=== PATIENT | male | born 1940 | race Caucasian/White ===

== ENCOUNTER 2016-06-08 09:58 | Inpatient (IN) | payer MEDICARE, BC ==
--- NOTE | 2016-06-08 10:27 | ED ---
General Adult HPI - General Chief complaint: Altered Mental Status Stated complaint: Alter mental/weakness Time Seen by Provider: 06/08/16 10:09 Source: EMS, RN notes reviewed, old records reviewed Mode of arrival: EMS Limitations: altered mental status - History of Present Illness Initial comments: This is a 75-year-old male ER for evaluation. This patient presents to ER for evaluation of altered mental status. Patient is brought in by EMS with family, patient is non-historian secondary to dementia, patient is altered mental status which is new decrease in level of responsiveness no known fevers, per family similar symptoms with prior urinary tract infections. History is otherwise obtained from EMS and the chart - Related Data Home Medications Medication Instructions Recorded Confirmed Allopurinol [Zyloprim] 300 mg PO HS 01/01/16 06/08/16 Aspirin EC [Ecotrin Low Dose] 81 mg PO DAILY 01/01/16 06/08/16 Donepezil [Aricept] 10 mg PO DAILY 01/01/16 06/08/16 Memantine [Namenda] 10 mg PO BID 01/01/16 06/08/16 Warfarin [Coumadin] 5 mg PO HS 01/01/16 06/08/16 Sertraline [Zoloft] 100 mg PO DAILY 02/26/16 06/08/16 Levothyroxine Sodium [Synthroid] 100 mcg PO DAILY 06/08/16 06/08/16 Tamsulosin HCl [Flomax] 0.4 mg PO DAILY 06/08/16 06/08/16 Allergies Allergy/AdvReac Type Severity Reaction Status Date / Time morphine Allergy Hallucinati Verified 06/08/16 11:26 ons Review of Systems ROS Statement: Those systems with pertinent positive or pertinent negative responses have been documented in the HPI. ROS Other: All systems not noted in ROS Statement are negative. Past Medical History Past Medical History: Cancer, CVA/TIA, Hyperlipidemia, Hypertension, Memory Impairment, Mitral Valve Prolapse (MVP) Additional Past Medical History / Comment(s): BLADDER CA, ALZHEIMERS History of Any Multi-Drug Resistant Organisms: None Reported Past Surgical History: No Surgical Hx Reported Additional Past Surgical History / Comment(s): BLADDER SURGERY, MITRAL VALVE REPLACED Past Anesthesia/Blood Transfusion Reactions: No Reported Reaction Past Psychological History: Depression Smoking Status: Former smoker Past Alcohol Use History: Rare Additional Past Alcohol Use History / Comment(s): STARTED SMOKING AT AGE 13 QUIT 1988 SMOKED 1PPD- 1 1/2PPD PPD Past Drug Use History: None Reported - Past Family History Mother Family Medical History: No Reported History General Exam - General Exam Comments Initial Comments: Pale Limitations: altered mental status General appearance: lethargic, in distress, cachectic Head exam: Present: atraumatic, normocephalic, normal inspection Eye exam: Present: normal appearance, PERRL, EOMI. Absent: scleral icterus, conjunctival injection, periorbital swelling ENT exam: Present: mucous membranes dry, mucous membranes moist Neck exam: Present: normal inspection. Absent: tenderness, meningismus, lymphadenopathy Respiratory exam: Present: normal lung sounds bilaterally. Absent: respiratory distress, wheezes, rales, rhonchi, stridor Cardiovascular Exam: Present: normal rhythm, tachycardia, normal heart sounds. Absent: systolic murmur, diastolic murmur, rubs, gallop, clicks GI/Abdominal exam: Present: soft, normal bowel sounds. Absent: distended, tenderness, guarding, rebound, rigid Extremities exam: Present: normal inspection, full ROM, normal capillary refill. Absent: tenderness, pedal edema, joint swelling, calf tenderness Back exam: Present: normal inspection Neurological exam: Present: alert, oriented X3, CN II-XII intact Psychiatric exam: Present: normal affect, normal mood Skin exam: Present: warm, dry, intact, normal color. Absent: rash Course Vital Signs 06/08/16 06/08/16 06/08/16 10:06 11:42 11:59 Temperature 96.7 F L Pulse Rate 104 H 110 H 100 Respiratory 22 20 20 Rate Blood Pressure 111/59 106/57 O2 Sat by Pulse 100 98 100 Oximetry - Reevaluation(s) Reevaluation #1: 06/08/16 11:06 Patient still weak lethargic mildly responsive EKG Findings - EKG Comments: EKG Findings:: EKG shows junctional rhythm rate of 104, QRS 82, QTc 457 Medical Decision Making - Medical Decision Making Signs and male ER for altered mental status and weakness. Patient found to be profoundly anemic with leukocytosis. Patient very pale on exam mildly tachycardic and severely dehydrated. Patient will be admitted for IV hydration and blood transfusion, monitoring of hemoglobin monitoring of cardiorespiratory status and hemodynamic status - Lab Data Result diagrams: 06/08/16 10:37 06/08/16 10:37 Lab Results 06/08/16 06/08/16 06/08/16 Range/Units 10:37 10:37 10:37 WBC 28.7 H* (3.8-10.6) k/uL RBC 1.68 L (4.30-5.90) m/uL Hgb 3.7 L* (13.0-17.5) gm/dL Hct 15.0 L* (39.0-53.0) % MCV 89.2 (80.0-100.0) fL MCH 22.2 L (25.0-35.0) pg MCHC 24.9 L (31.0-37.0) g/dL RDW 15.4 (11.5-15.5) % Plt Count 573 H (150-450) k/uL Neutrophils % (Manual) 96.0 % Lymphocytes % (Manual) 3.0 % Monocytes % (Manual) 1.0 % Neutrophils # (Manual) 27.6 H (1.3-7.7) k/uL Lymphocytes # (Manual) 0.9 L (1.0-4.8) k/uL Monocytes # (Manual) 0.3 (0-1.0) k/uL Nucleated RBCs 0 (0-0) /100 WBC Polychromasia Present Hypochromasia Marked Poikilocytosis Slight Anisocytosis (manual) Present Ovalocytes Present PT (9.0-12.0) sec INR (<1.1) APTT (22.0-30.0) sec Sodium 148 H (137-145) mmol/L Potassium 5.1 (3.5-5.1) mmol/L Chloride 113 H (98-107) mmol/L Carbon Dioxide 7 L* (22-30) mmol/L Anion Gap 28 mmol/L BUN 61 H (9-20) mg/dL Creatinine 2.00 H (0.66-1.25) mg/dL Est GFR (MDRD) Af Amer 39 (>60 ml/min/1.73 sqM) Est GFR (MDRD) Non-Af 33 (>60 ml/min/1.73 sqM) Glucose 153 H (74-99) mg/dL Calcium 8.8 (8.4-10.2) mg/dL Phosphorus 7.2 H (2.5-4.5) mg/dL Magnesium 2.6 H (1.6-2.3) mg/dL Total Bilirubin 0.3 (0.2-1.3) mg/dL AST 98 H (17-59) U/L ALT 21 (21-72) U/L Alkaline Phosphatase 98 (38-126) U/L Total Creatine Kinase 2574 H (55-170) U/L CK-MB (CK-2) 30.4 H* (0.0-2.4) ng/mL CK-MB (CK-2) Rel Index Troponin I 0.124 H* (0.000-0.034) ng/mL NT-Pro-B Natriuret Pep pg/mL Total Protein 6.1 L (6.3-8.2) g/dL Albumin 3.0 L (3.5-5.0) g/dL TSH 3.480 (0.465-4.680) mIU/L 06/08/16 06/08/16 Range/Units 10:37 10:37 WBC (3.8-10.6) k/uL RBC (4.30-5.90) m/uL Hgb (13.0-17.5) gm/dL Hct (39.0-53.0) % MCV (80.0-100.0) fL MCH (25.0-35.0) pg MCHC (31.0-37.0) g/dL RDW (11.5-15.5) % Plt Count (150-450) k/uL Neutrophils % (Manual) % Lymphocytes % (Manual) % Monocytes % (Manual) % Neutrophils # (Manual) (1.3-7.7) k/uL Lymphocytes # (Manual) (1.0-4.8) k/uL Monocytes # (Manual) (0-1.0) k/uL Nucleated RBCs (0-0) /100 WBC Polychromasia Hypochromasia Poikilocytosis Anisocytosis (manual) Ovalocytes PT >130.0 H (9.0-12.0) sec INR >10.0 H* (<1.1) APTT 62.8 H (22.0-30.0) sec Sodium (137-145) mmol/L Potassium (3.5-5.1) mmol/L Chloride (98-107) mmol/L Carbon Dioxide (22-30) mmol/L Anion Gap mmol/L BUN (9-20) mg/dL Creatinine (0.66-1.25) mg/dL Est GFR (MDRD) Af Amer (>60 ml/min/1.73 sqM) Est GFR (MDRD) Non-Af (>60 ml/min/1.73 sqM) Glucose (74-99) mg/dL Calcium (8.4-10.2) mg/dL Phosphorus (2.5-4.5) mg/dL Magnesium (1.6-2.3) mg/dL Total Bilirubin (0.2-1.3) mg/dL AST (17-59) U/L ALT (21-72) U/L Alkaline Phosphatase (38-126) U/L Total Creatine Kinase (55-170) U/L CK-MB (CK-2) (0.0-2.4) ng/mL CK-MB (CK-2) Rel Index Troponin I (0.000-0.034) ng/mL NT-Pro-B Natriuret Pep 9450 pg/mL Total Protein (6.3-8.2) g/dL Albumin (3.5-5.0) g/dL TSH (0.465-4.680) mIU/L - Radiology Data Radiology results: report reviewed (CT brain negative for acute disease, chest x -ray negative for acute disease), image reviewed Critical Care Time Critical Care Time: Yes Total Critical Care Time: 31 Disposition Clinical Impression: Altered mental status, Anemia, Leukocytosis, Coumadin toxicity Disposition: ADMITTED IP TO THIS [facility] Condition: Serious
[2016-06-08] MEDS ORDERED: SODIUM CHLORIDE 0.9% 1,000 ML IV STA (10:33)
[2016-06-08] MEDS ORDERED: SODIUM CHLORIDE 0.9% 500 ML IV STA (10:33)
[2016-06-08 10:54] LABS: CH 23.8; CHCM 26.8; HDW 3.77; Hypochromasia Marked; MCH 22.2 pg (25.0-35.0); MCV 89.2 fL (80.0-100.0); Poikilocytosis Slight; RBC 1.68 m/uL (4.30-5.90); RDW 15.4 % (11.5-15.5); WBC (Perox) 28.51
[2016-06-08 11:03] LABS: MCHC 24.9 g/dL (31.0-37.0)
[2016-06-08 11:04] LABS: WBC 28.7 k/uL (3.8-10.6)
--- NOTE | 2016-06-08 11:04 | CT ---
EXAMINATION TYPE: CT brain wo con DATE OF EXAM: 06/08/2016 10:58 AM COMPARISON: January 15, 2016 HISTORY: Patient poor historian. Patient shows signs of weakness. Patient has a history of dementia . CT DLP: 864.[address] of the brain was performed. The ventricles, basal cisterns and sulci overlying the cerebral convexities demonstrate mild enlargem ent. There is no evidence for intracranial hemorrhage or sulcal effacement. There is decreased attenuation about the periventricular white matter and deep white matter of both c erebral hemispheres, compatible with chronic small vessel ischemia. Differential diagnosis does inclu de demyelination. No mass effects are seen.No midline shift. Osseous calvarium is intact. If symptoms persist consider MRI. IMPRESSION: 1. Age related atrophic and chronic small vessel ischemic change without acute intracranial process s een at this time.
[2016-06-08 11:06] LABS: HGB 3.7 gm/dL (13.0-17.5)
--- NOTE | 2016-06-08 11:06 | XR ---
EXAMINATION TYPE: XR chest 2V DATE OF EXAM: 06/08/2016 10:58 AM COMPARISON: 01/01/2016 HISTORY: Shortness of breath TECHNIQUE: Frontal and lateral views of the chest are obtained. FINDINGS: Scattered senescent parenchymal changes noted. Hyperinflation compatible with COPD. No evidence for infiltrate. No evidence for atelectasis. Heart size is stable. Mediastinal structures are stable and grossly unremarkable. No evidence for hilar prominence. Degenerative changes dorsal spine. IMPRESSION: 1. No evidence for acute pulmonary disease.
[2016-06-08] MEDS ORDERED: SODIUM CHLORIDE 0.9% 1,000 ML IV ONE ×2 (11:07→14:04)
[2016-06-08 11:17] LABS: Calcium 8.8 mg/dL (8.4-10.2); Magnesium 2.6 mg/dL (1.6-2.3); Phosphorous 7.2 mg/dL (2.5-4.5); Potassium 5.1 mmol/L (3.5-5.1); Total Bilirubin 0.3 mg/dL (0.2-1.3); Total Protein 6.1 g/dL (6.3-8.2)
[2016-06-08 11:25] LABS: Prothrombin Time >130.0 sec (9.0-12.0)
[2016-06-08 11:26] LABS: INR >10.0 (<1.1)
[2016-06-08 11:27] LABS: Partial Thromboplastin Time 62.8 sec (22.0-30.0)
[2016-06-08 11:29] LABS: Creatine Kinase MB 30.4 ng/mL (0.0-2.4); Troponin I 0.124 ng/mL (0.000-0.034)
[2016-06-08] MEDS ORDERED: PHYTONADIONE 10 MG in SODIUM CHLORIDE 0.9% 50 ML IVPB STA (11:29)
[2016-06-08 11:33] LABS: Add Differential Manual Differential
[2016-06-08 11:34] LABS: Nucleated Red Blood Cells 0 /100 WBC (0-0); Total Cells Counted 100
[2016-06-08 11:35] LABS: Polychromasia Present
[2016-06-08 11:36] LABS: Ovalocytes Present
[2016-06-08 12:07] LABS: Amorphous Sediment,Urine Rare /hpf; Appearance,Urine Cloudy (Clear); Bilirubin,Urine Negative (Negative); Glucose,Urine (UA) Negative (Negative); Ketones,Urine Trace (Negative); Leukocyte Esterase,Urine Negative (Negative); Mucus,Urine Rare /hpf; Nitrite,Urine Negative (Negative); Particle Count 10417; Protein,Urine 1+ (Negative); RBC,Urine 1 /hpf (0-5); Specific Gravity,Urine 1.014 (1.001-1.035); UA Billing (MACRO vs. MICRO) MICRO; Urobilinogen,Urine <2.0 mg/dL (<2.0); WBC,Urine 2 /hpf (0-5)
[2016-06-08 13:53] LABS: VBG PH 6.96 (7.31-7.41)
[2016-06-08] MEDS: SODIUM BICARB 8.4% 50 ML SYR (1 MEQ/ML) IV STA ×4 (15:46→15:54)
[2016-06-08] MEDS: SODIUM CHLORIDE 0.9% 1,000 ML IV ONE ×2 (15:47→15:53)
[2016-06-08] MEDS ORDERED: HYDROmorphone 1 MG/ML 1 ML SYRINGE IVP PRN (18:09)
[2016-06-08] MEDS ORDERED: SODIUM CHLORIDE 0.9% 1,000 ML IV SCH (18:15)
[2016-06-08 18:38] VITALS: BP 80/44; PULSE 98; RESP 29; TEMP 96.9
--- NOTE | 2016-06-08 18:40 | P.HPIM ---
History of Present Illness Chief complaint: Altered mental status. History of present illness: Patient is a 75-year-old gentleman who does have underlying Alzheimer's dementia. Apparently yesterday he became very lethargic and would not get out of bed. He was not responsive to family members. Has been having multiple falls at home. Generally deteriorating further over the past 48 hours so family brought him to the emergency room. The patient was found to be markedly anemic with a hemoglobin of 3.7. Also very acidotic with a CO2 content down to 7. An elevated plasma lactic acid level of 17.5. Along with stage III renal failure and an elevated CK likely related to rhabdomyolysis. Consultation was obtained with pulmonary medicine and Dr. Mcdaniels discussed with the family in the emergency room. I discussed over the phone with Dr. Mcdaniels. Family subsequently decided on comfort care/hospice care and did not want further aggressive treatment such as endoscopies or transfusion therapy. Past medical history: Patient does have fairly late onset but progressive Alzheimer's disease. Patient has history of mitral valve disorder for which he is on Coumadin. Patient does have underlying history of hypertension. Also hypothyroidism. Patient has also had underlying depression for a long time. BPH. Previous gout attacks. The patient has been [facility] and also by neurology Dr. West and has been on Aricept 10 mg and memantine 10 mg. Medication: Patient does not have ALLERGIES to morphine but did have side effects with hallucinations at one point. Home medications include Coumadin 5 mg daily. Flomax 0.4 mg daily. Zoloft 100 mg daily. Levothyroxine 100 g daily. Aspirin 81 mg daily. Zyloprim 300 mg at at bedtime. Namenda 10 mg twice a day. And Aricept 10 mg daily. Review of systems: Basically as mentioned in history of present illness. Apparently he has had numerous falls at home. No definite history of any head injury or headaches. No nausea or vomiting. Family denied any actual hematemesis or melena. Family history noncontributory Social history: he is a former smoker. Negative for alcohol usage. Patient did live with his locally and does have many family members present in the room at this time. Physical examination: The patient does try to verbalize but mostly mumbles. Vital signs reveal temperature of 96.6 with a pulse of 100 and respirations 20. Blood pressure 125/53 and he is 98% saturated. Head is atraumatic. Extraocular movements intact. Neck does not reveal any adenopathy or thyromegaly. Lungs are clear to auscultation. Heart tones are regular without definitive murmur or rubs appreciated. Abdomen does not reveal any tenderness. No organomegaly or masses detected. Extremities reveal no edema. He is obtunded. But able to move all extremities and no definitive focal neurological weakness noted. Laboratory values: White count elevated at 28.7 with a hemoglobin of 3.7 and a platelet count of 573. INR is 10 with a prothrombin time of 130. Venous pH was 6.96. Sodium was 148 with potassium of 5.1 but his CO2 content of 7. BUN is 61 with a creatinine of 2 giving him a GFR of 33. Plasma lactic acid was there is 17.5. Glucose 153. Phosphorus elevated at 7.2 with a magnesium 2.6 and a calcium of 8.8. AST was 98. CK was 2574. CK-MB elevated at 30.4. Troponin 0.124. TSH was 3.4. Urinalysis was negative for leukocyte esterase and only 2 white cells present. Chest x-ray revealed no evidence of acute pulmonary disease Brain CAT scan showed age-related atrophy without acute intracranial process. EKG showed a accelerated junctional rhythm. No definite ischemic changes noted. Impressions and plans: Overall this 75-year-old gentleman with underlying Alzheimer's dementia presents with active gastrointestinal blood loss with marked anemia down to 3.7. Unable to definitively to pinpoint cause of bleeding such as peptic ulcer or underlying intra-abdominal malignancy. But in light of his severe Alzheimer' s disease family wanted to make patient a no code no CPR and continue now with the hospice care for the patient. Prognosis is very guarded in light of the seriousness of the bleed and the associated metabolic acidosis and rhabdomyolysis and possible myocardial infarction associated to with the severe anemia. Other past history as stated above. Plans are therefore for hospice to be consulted. Comfort measures instituted with analgesics as needed. We will decrease IV down to 20 mL an hour. No laboratory testing or further evaluations for diagnostic or therapeutic purposes at this time as discussed with and daughters at bedside. Past Medical History Past Medical History: Cancer, CVA/TIA, Hyperlipidemia, Hypertension, Memory Impairment, Mitral Valve Prolapse (MVP) Additional Past Medical History / Comment(s): BLADDER CA, ALZHEIMERS, FALLS, GOUT, MURMUR- HAD MVP(SX DONE), TIA X2, UTI History of Any Multi-Drug Resistant Organisms: None Reported Past Surgical History: No Surgical Hx Reported Additional Past Surgical History / Comment(s): BLADDER SURGERY, MITRAL VALVE REPLACED, COLONOSCOPY Past Anesthesia/Blood Transfusion Reactions: No Reported Reaction Past Psychological History: Depression Additional Psychological History / Comment(s): MAINTAINE BY MEDS Smoking Status: Former smoker Past Alcohol Use History: Rare Additional Past Alcohol Use History / Comment(s): STARTED SMOKING AT AGE 13(1956 ), QUIT 1987 SMOKED 1PPD- 1 1/2PPD PPD Past Drug Use History: None Reported - Past Family History Mother Family Medical History: Coronary Artery Disease (CAD) Additional Family Medical History / Comment(s): HEART DISEASE Father Family Medical History: COPD Additional Family Medical History / Comment(s): EMPHYSEMA Medications and Allergies Home Medications Medication Instructions Recorded Confirmed Type Allopurinol [Zyloprim] 300 mg PO HS 01/01/16 06/08/16 History Aspirin EC [Ecotrin Low Dose] 81 mg PO DAILY 01/01/16 06/08/16 History Donepezil [Aricept] 10 mg PO DAILY 01/01/16 06/08/16 History Memantine [Namenda] 10 mg PO BID 01/01/16 06/08/16 History Warfarin [Coumadin] 5 mg PO HS 01/01/16 06/08/16 History Sertraline [Zoloft] 100 mg PO DAILY 02/26/16 06/08/16 History Levothyroxine Sodium [Synthroid] 100 mcg PO DAILY 06/08/16 06/08/16 History Tamsulosin HCl [Flomax] 0.4 mg PO DAILY 06/08/16 06/08/16 History Allergies Allergy/AdvReac Type Severity Reaction Status Date / Time morphine Allergy Hallucinati Verified 06/08/16 11:26 ons Physical Exam Vitals: Vital Signs Temp Pulse Resp BP Pulse Ox 06/08/16 15:44 96.6 F L 100 20 125/53 98 06/08/16 14:01 96.6 F L 101 H 20 109/46 98 06/08/16 13:31 96.7 F L 108 H 20 113/53 98 06/08/16 13:21 96.7 F L 108 H 20 106/52 100 06/08/16 12:00 97.2 F L 103 H 26 H 117/43 99 06/08/16 11:59 100 20 100 06/08/16 11:42 110 H 20 106/57 98 Intake and Output 06/08/16 06/08/16 06/08/16 06:59 14:59 22:59 Intake Total 0 250 Output Total 50 Balance -50 250 Intake: Blood Product 0 250 Rc Cpda-1 Unit 0 250 [id number] Output: Urine 50 Uretheral (Suarez) 50 Other: Voiding Method Indwelling Catheter Results CBC & Chem 7: 06/08/16 10:37 06/08/16 10:37 Labs: Abnormal Lab Results - Last 24 Hours (Table) 06/08/16 Range/Units 11:39 Urine Protein 1+ H (Negative) Urine Ketones Trace H (Negative) Urine Blood Large H (Negative) Amorphous Sediment Rare H (None) /hpf Urine Mucus Rare H (None) /hpf Microbiology - Last 24 Hours (Table) 06/08/16 11:39 Urine Culture - Preliminary Urine,Catheterized
--- NOTE | 2016-06-08 21:32 | CONS ---
DATE OF CONSULTATION: This is a 75-year-old gentleman whom I went down to the ER to evaluate. I was initially called by the ER doctor. We decided that the patient could be probably admitted to [facility]. He came in with profound anemia and coagulopathy from Coumadin. Apparently I was notified by somebody in the ER that the patient was going to be admitted to the ICU. I called Dr. Mi back. He said it was not him. I went down to see the patient myself. I spent a great deal of time down there evaluating the patient and also talking to Mrs. Tovar and Mrs. Tovar's daughter. I spoke to Dr. Mi and then went back in and spoke to Mrs. Tovar and her daughter, and I also took the time to call Dr. Martell. Anyway, the long and the short of it is that Mr. Tovar would not want anything heroic done. He would not want to be on any life support or mechanical ventilation. The patient's labs are pretty bad, and I did talk to Dr. Martell about more conservative measures and probably comfort care. Apparently Mr. Tovar had been falling at home. He apparently has a number of bruises to document that. The patient apparently was bedridden over the last couple of days. Apparently he started not doing well on or Wednesday of last week. His actually attends [employer] with me, so we had a lot to talk about in regards to synagogue and the logistics analyst, etc. I am convinced that what she is saying is true and that Mr. Tovar would not want to be in the ICU and not really have any aggressive therapy at this point. She was hoping that maybe she might be able to take Mr. Tovar home. His past medical history includes: 1. Bladder cancer. 2. Severe dementia. 3. CVA. 4. Hyperlipidemia. 5. Hypertension. 6. Mitral valve prolapse. 7. Previous history of mitral valve surgery with replacement with a mechanical valve. Social history is positive for tobacco use. He would drink rarely. He started smoking at age 13 and quit back in 1987. Family history is not too remarkable. Occupational history is noncontributory. Review of systems cannot be obtained. The patient is poorly responsive/unresponsive and very somnolent and lethargic. Current vital signs are reviewed. Temperature is 96.6. Heart rate is 101, respiratory rate 20 to 26, blood pressure 109/46, mean 67. His saturations are between 98% and 100% on 2 L. He appears in no acute distress. HEENT examination is grossly unremarkable. Mucous membranes are moist. No oral lesions. TM ( ) normal. NECK: Supple. Full range of motion. No adenopathy. Cardiovascular examination reveals regular rhythm and rate. The second heart sound is very clicky in sound. No murmur. No S3, S4. He is not tachycardic. Lungs reveal clear breath sounds. No wheezes or rhonchi. ABDOMEN: Soft. Bowel sounds are heard. EXTREMITIES: Intact. The skin is very pale. Labs are reviewed. White count 28.7, hemoglobin 3.7, hematocrit 15, hematocrit 573. PT 130. INR greater than 10. PTT is 62.8. Venous blood gas shows pH of 6.96, pCO2 of 42. Sodium 148, potassium 5.1, chloride 113. CO2 is 7. Anion gap is 28. BUN and creatinine were 61 and 2. Lactic acid 17.5. Calcium 8.8, phosphorus 7.2, magnesium 2.6. AST 98. His total CK was 2574. MB was 30.4. Index is pending. Troponin was 0.124. N-terminal proBNP 9450. Albumin 3. TSH normal. Urine is cloudy. Specific gravity is 1.014, pH of 5, 1+ protein, trace ketones, large blood and rare sediment and mucus. The patient had a brain CT which showed age-related atrophic changes. His chest x-ray showed no acute abnormality. The EKG was consistent with low-voltage and a junctional rhythm. Medications were reviewed. ASSESSMENT: 1. Mental status changes with profound anemia and multi-organ system failure. 2. Acute kidney injury. 3. Profound anemia. 4. Profound coagulopathy secondary to Coumadin. 5. Multiple falls. 6. Chronic atrophic changes on brain CT without an acute ischemic event or hemorrhage. 7. Status post mitral valve replacement. 8. History of gout. 9. History of hyperlipidemia. 10. History of bladder cancer. 11. History of cerebrovascular accident. 12. History of hypertension. 13. Profound dementia. PLAN: The patient is NO CODE. The patient should be made comfort measures as per my discussion with the family and Dr. Martell. The patient will be admitted to the floor. We recommend conservative therapy, including his fluids, some blood transfusions just to a hemoglobin of 7, and vitamin K or fresh frozen plasma to correct the coagulopathy. No additional therapies are probably warranted at this time, and his is pretty confident that the patient would not want any of this to be done. Anyway, I did discuss this in detail with his , his daughter, the ER doctor and Dr. Martell, the primary physician.
== END 2016-06-08 22:38 | disposition hospice, inpatient (51) | DRG 811 ==
LOC: EC 09:58 → 6ICU 11:07 → 4MS4W 16:10
PROVIDERS: ADMIT Internal Medicine; ATTEND Internal Medicine
PROC: 30233N1 Transfusion of Nonautologous Red Blood Cells into Peripheral Vein, Percutaneous Approach (ICD-10-PCS; principal; 2016-06-08)
DX: D62 Acute posthemorrhagic anemia (principal); I21.3 ST elevation (STEMI) myocardial infarction of unspecified site; N17.9 Acute kidney failure, unspecified; E87.2 Acidosis; M62.82 Rhabdomyolysis; K92.2 Gastrointestinal hemorrhage, unspecified; D72.829 Elevated white blood cell count, unspecified; T45.515A Adverse effect of anticoagulants, initial encounter; F02.80 Dementia in other diseases classified elsewhere, unspecified severity, without behavioral disturbance, psychotic disturbance, mood disturbance, and anxiety; E86.0 Dehydration; E03.9 Hypothyroidism, unspecified; E78.5 Hyperlipidemia, unspecified; F32.9 Major depressive disorder, single episode, unspecified; I12.9 Hypertensive chronic kidney disease with stage 1 through stage 4 chronic kidney disease, or unspecified chronic kidney disease; M10.9 Gout, unspecified; N18.3 Chronic kidney disease, stage 3 (moderate); N40.0 Benign prostatic hyperplasia without lower urinary tract symptoms; G30.1 Alzheimer's disease with late onset; R29.6 Repeated falls; Z51.5 Encounter for palliative care; Z79.01 Long term (current) use of anticoagulants; Z79.82 Long term (current) use of aspirin; Z79.899 Other long term (current) drug therapy; Z85.51 Personal history of malignant neoplasm of bladder; Z87.891 Personal history of nicotine dependence; Z95.2 Presence of prosthetic heart valve; Z88.5 Allergy status to narcotic agent; Z82.49 Family history of ischemic heart disease and other diseases of the circulatory system; Y92.009 Unspecified place in unspecified non-institutional (private) residence as the place of occurrence of the external cause
CPT/HCPCS: 36415; 70450; 71020; 80053; 81001; 82550; 82553; 82803; 83605; 83735; 83880; 84100; 84443; 84484; 85025; 85610; 85730; 86850; 86900; 86901; 86920; 87040; 87086; 93005; 96361; 96365; 99291

== ENCOUNTER 2016-06-08 22:43 | Inpatient (IN) | payer MEDICAID ==
[2016-06-09 00:39] VITALS: BMI 25.8
[2016-06-09] MEDS ORDERED: HYDROmorphone 1 MG/ML 1 ML SYRINGE IVP PRN (00:53)
[2016-06-09] MEDS ORDERED: ATROPINE OPHTH SOLN 1% 5ML BTL BOTH EYES PRN (00:57)
[2016-06-09] MEDS ORDERED: ACETAMINOPHEN SUPPOSITORY 650 MG SUPP RECTAL PRN (00:59)
[2016-06-09] MEDS ORDERED: BISACODYL 10 MG SUPP RECTAL PRN ×2 (01:00→02:40)
[2016-06-09 02:13] VITALS: RESP 16
[2016-06-09] MEDS: LORazepam 2 MG/ML SYRINGE IV PRN ×2 (04:59→23:56)
[2016-06-09] MEDS: HYDROmorphone 2 MG/ML 1 ML SYRINGE IVP PRN ×3 (05:42→15:18)
--- NOTE | 2016-06-09 07:21 | P.PN ---
Progress Note - Text The patient is a 75-year-old gentleman who has late onset severe Alzheimer's dementia presented yesterday with mental status changes and was found to be very anemic with a hemoglobin 3.7 he apparently passed melanotic stool in the emergency room. He was also found to be very acidotic with a markedly elevated lactic acid level of 17.5 acute on chronic renal failure stage III with an elevated CK likely related to rhabdomyolysis. Further discussions with the family ensued and they have elected for hospice care. Last evening patient was accepted to hospice. Patient has rested well through the night. He is on medication for restlessness and pain. His respirations are 16 and unlabored. His lung sounds are clear. He still has a good detectable regular pulse. At this point discussed with family at bedside. They have discussed with hospice the desire to care for the patient back in his home environment. If that can be arranged for today we will go ahead as family wishes. Overall prognosis extremely guarded. Please refer to history and physical on presentation.
[2016-06-09] MEDS ORDERED: SCOPOLAMINE 1.5MG/72HR PATCH TRANSDERM SCH (18:00)
[2016-06-09] MEDS: HYDROmorphone 1 MG/ML 1 ML SYRINGE IVP PRN ×4 (20:20→23:51)
[2016-06-10] MEDS: HYDROmorphone 1 MG/ML 1 ML SYRINGE IVP PRN ×2 (02:10→04:32)
[2016-06-10] MEDS: LORazepam 2 MG/ML SYRINGE IV PRN (02:16)
--- NOTE | 2016-06-21 09:08 | P.DS ---
Providers Date of admission: 06/08/16 22:44 Patient is a 75-year-old gentleman with late onset severe Alzheimer's dementia who presented to the emergency room with marked lethargy gradually deteriorating over the past 48 hours. He was found on presentation to have very low hemoglobin of 3.7 along with metabolic acidosis with CO2 content count 7. Lactic acid level of 17.5. He was in stage III renal failure and an elevated CK likely causing rhabdomyolysis. Initially it was thought patient would be a ICU candidate and pulmonary medicine Dr. Mcdaniels was consulted. After discussing with patient's family, patient and family did not want any aggressive tests or evaluations or treatment in that the patient was a hospice candidate. He was made no code, no CPR and comfort care and hospice was consulted. I discussed later in depth with the patient and multiple family members present and their main concern was to keep patient comfortable and hopefully return patient to at home. Patient did have further melanotic stools after leaving the emergency room. Along with that his weakness and blood pressure decreased and patient subsequently at 5:48 AM on 06/10/2016. Cause of being acute upper gastrointestinal bleeding with marked blood loss anemia with hemoglobin down to 3.7. Resulting in severe metabolic acidosis and lactic acidosis with a level of 17. Acute on chronic kidney disease with stage III renal failure. Rhabdomyolysis History of late onset severe dementia Alzheimer's type. History of mitral valve replacement on Coumadin. History of hypertension Hypothyroidism on replacement. History of previously treated depression. History of BPH. History of gout. Attending physician: Ernst Martell Primary care physician: Ernst Martell Plan - Discharge Summary Discharge Medication List Allopurinol [Zyloprim] 300 mg PO HS 01/01/16 [History] Aspirin EC [Ecotrin Low Dose] 81 mg PO DAILY 01/01/16 [History] Donepezil [Aricept] 10 mg PO DAILY 01/01/16 [History] Memantine [Namenda] 10 mg PO BID 01/01/16 [History] Warfarin [Coumadin] 5 mg PO HS 01/01/16 [History] Sertraline [Zoloft] 100 mg PO DAILY 02/26/16 [History] Levothyroxine Sodium [Synthroid] 100 mcg PO DAILY 06/08/16 [History] Tamsulosin HCl [Flomax] 0.4 mg PO DAILY 06/08/16 [History] - Preliminary Cause of Preliminary Cause of : Severe gastrointestinal bleed with blood loss anemia and HGB 3.7.
== END 2016-06-10 05:15 | disposition expired | DRG 378 ==
LOC: UNDOADMIN 22:44 → 4MS4W 22:44 → UNDODISIN 06-10 05:15
PROVIDERS: ADMIT Internal Medicine; ATTEND Internal Medicine
DX: K92.2 Gastrointestinal hemorrhage, unspecified (principal); N17.9 Acute kidney failure, unspecified; E87.2 Acidosis; M62.82 Rhabdomyolysis; D50.0 Iron deficiency anemia secondary to blood loss (chronic); G30.1 Alzheimer's disease with late onset; F02.80 Dementia in other diseases classified elsewhere, unspecified severity, without behavioral disturbance, psychotic disturbance, mood disturbance, and anxiety; Z66 Do not resuscitate; Z51.5 Encounter for palliative care; E78.5 Hyperlipidemia, unspecified; I12.9 Hypertensive chronic kidney disease with stage 1 through stage 4 chronic kidney disease, or unspecified chronic kidney disease; M10.9 Gout, unspecified; E03.9 Hypothyroidism, unspecified; N40.0 Benign prostatic hyperplasia without lower urinary tract symptoms; N18.3 Chronic kidney disease, stage 3 (moderate); Z85.51 Personal history of malignant neoplasm of bladder; Z86.73 Personal history of transient ischemic attack (TIA), and cerebral infarction without residual deficits; Z87.891 Personal history of nicotine dependence; Z95.2 Presence of prosthetic heart valve; Z79.01 Long term (current) use of anticoagulants; Z79.82 Long term (current) use of aspirin; Z79.899 Other long term (current) drug therapy